=== PATIENT | male | born 1940 | race Native Hawaiian/Other Pacific Islander ===

== ENCOUNTER 2023-05-24 13:01 | Emergency (ER) | payer OTHER ==
[~2023-05-24] VITALS: Ht 175.3 cm; Wt 108.9 kg
[2023-05-24 13:15] VITALS: TEMP 98.2
[2023-05-24 13:25] LABS: PLATELET COUNT 194 K/uL (142-355)
[2023-05-24 13:34] LABS: POTASSIUM 3.8 mmol/L (3.6-5.2)
[2023-05-24] MEDS ORDERED: QUETIAPINE50 MG PO (13:52)
[2023-05-24] MEDS ORDERED: MELOXICAM PO (13:53)
[2023-05-24] MEDS ORDERED: SERTRALINE HYD100 MG PO (13:54)
[2023-05-24] MEDS ORDERED: ASPIRIN 8181 MG PO (13:55)
[2023-05-24] MEDS ORDERED: PANTOPRAZOLE 40MG TA PO (13:55)
[2023-05-24] MEDS ORDERED: ROSUVASTATIN CA20 MG PO (13:56)
[2023-05-24] MEDS ORDERED: TRAMADOL HYDROC50 MG PO (13:56)
[2023-05-24 18:43] VITALS: BP 118/57
== END 2023-05-24 18:45 | disposition short-term general hospital (02) ==
LOC: ED 13:01 → EDBD 13:01 → ED 18:45
PROVIDERS: Family Medicine
DX: R17 Unspecified jaundice (principal); R42 Dizziness and giddiness; R11.2 Nausea with vomiting, unspecified; R82.2 Biliuria; R74.01 Elevation of levels of liver transaminase levels
CPT/HCPCS: 80053; 81002; 83690; 84484; 85027; 93005; 96374; 99284; J2405; Q9963